=== PATIENT | female | born 1975 | race Caucasian/White ===

== ENCOUNTER 2016-07-09 16:07 | Emergency (ER) | payer OTHER ==
--- NOTE | ~2016-07-09 | CR108 ---
[facility] A Service of [facility] & [facility] RADIOLOGY TEXT RESULTS PATIENT: ROSALINA RIBERA LOCATION: CFTX : 71 UNIT #: [id number] AGE: [address]: Raven Da Silva APRN SEX: F ORDER DR: [id number] [facility] [address] [place], [place] [address] [id number] MR#: [id number] Acc #: [id number] NAME: ROSALINA RIBERA : 1975 SEX: F STUDY DATE/TIME: 07/09/2016 15:16 UNIT: [facility] ROOM: STUDY DESCRIPTION: CR Finger 2 View 2nd Lt Attending Physician: Raven Da Silva A.P.R.N. Referring Physician: Declan Valdes M.D. Ordering Physician: Ed Latrell Nguyen M.D. Primary Care Physician: No Primary Care Physician MEDICAL IMAGING REPORT This report is preliminary unless electronic signature is present EXAM Left 2nd finger. INDICATION Pain and swelling for 3 days after a fall. FINDINGS 3 views of the left 2nd finger were obtained. There is swelling around the proximal phalanx. Bones are normal, and there is no foreign body. IMPRESSION There is some diffuse swelling around the proximal phalanx, otherwise, the study is normal. Dictated by... Shyam Babin M.D. THIS IS AN ELECTRONICALLY VERIFIED REPORT Shyam Babin M.D. at 07/10/2016 7:09 AM JACKI/luz TD: 07/09/2016 17:41 JOB #: [id number] MEDICAL IMAGING REPORT Page 1 of 1 COPY
== END 2016-07-09 16:46 | disposition home or self-care (01) ==
LOC: CFTX 16:07
DX: S63.651A Sprain of metacarpophalangeal joint of left index finger, initial encounter (principal); F17.210 Nicotine dependence, cigarettes, uncomplicated; W01.0XXA Fall on same level from slipping, tripping and stumbling without subsequent striking against object, initial encounter; Y92.009 Unspecified place in unspecified non-institutional (private) residence as the place of occurrence of the external cause; F32.9 Major depressive disorder, single episode, unspecified
CPT/HCPCS: 29130; 73140; 99283